=== PATIENT | male | born 1975 | race Caucasian/White ===

== ENCOUNTER 2016-06-29 19:27 | Emergency (ER) | payer OTHER ==
--- NOTE | 2016-06-29 20:40 | ED ---
URI HPI - General Chief Complaint: Upper Respiratory Infection Stated Complaint: Upper Resp Symptoms Time Seen by Provider: 06/29/16 20:07 Source: patient, RN notes reviewed Mode of arrival: ambulatory Limitations: no limitations - History of Present Illness Initial Comments: 40-year-old male presents emergency Department with chief complaint of cough and congestion times one to 2 days. Patient denies any nausea vomiting. Patient states that he has a cough, runny nose no fevers no chills. Denies sore throat any ear pain. He states he does have some body aches. Patient offers no complaints. - Related Data Home Medications Medication Instructions Recorded Confirmed Citalopram Hydrobromide [CeleXA] 10 mg PO DAILY 06/29/16 06/29/16 Gabapentin 800 mg PO TID 06/29/16 06/29/16 Allergies Allergy/AdvReac Type Severity Reaction Status Date / Time No Known Allergies Allergy Verified 06/29/16 20:01 Review of Systems ROS Statement: Those systems with pertinent positive or pertinent negative responses have been documented in the HPI. ROS Other: All systems not noted in ROS Statement are negative. 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 Absent: scleral icterus, conjunctival injection, periorbital swelling ENT exam: Present: normal exam, normal oropharynx, mucous membranes moist, TM's normal bilaterally, normal external ear exam Neck exam: Present: normal inspection, full ROM. Absent: tenderness, meningismus, lymphadenopathy Respiratory exam: Present: normal lung sounds bilaterally. Absent: respiratory distress, wheezes, rales, rhonchi, stridor Cardiovascular Exam: Present: regular rate, normal rhythm, normal heart sounds. Absent: systolic murmur, diastolic murmur, rubs, gallop, clicks Course Vital Signs 06/29/16 20:00 Temperature 99.1 F Pulse Rate 92 Respiratory 18 Rate Blood Pressure 121/68 O2 Sat by Pulse 95 Oximetry Medical Decision Making - Medical Decision Making 40-year-old male presented for emergency department for cough and congestion. Patient's chest x-ray shows no acute abnormality. Patient has a viral URI. Disposition Clinical Impression: Upper respiratory infection Disposition: HOME SELF-CARE Condition: Stable Instructions: Upper Respiratory Infection (ED) Additional Instructions: Please return to the Emergency Department if symptoms worsen or any other concerns. Time of Disposition: 21:30
--- NOTE | 2016-06-29 21:16 | XR ---
EXAMINATION TYPE: XR chest 2V DATE OF EXAM: 06/29/2016 8:27 PM COMPARISON: 02/07/2016 HISTORY: Cough and congestion TECHNIQUE: Frontal and lateral views of the chest are obtained. FINDINGS: There is no focal air space opacity, pleural effusion, or pneumothorax seen. The cardiac silhouette size is within normal limits. The osseous structures are intact. IMPRESSION: No acute cardiopulmonary process.
[2016-06-29 21:38] VITALS: BP 122/69; PULSE 74; RESP 16; TEMP 97.9
== END 2016-06-29 21:43 | disposition home or self-care (01) ==
LOC: EC 19:27
DX: J06.9 Acute upper respiratory infection, unspecified (principal); F17.200 Nicotine dependence, unspecified, uncomplicated
CPT/HCPCS: 71020; 99283

== ENCOUNTER 2017-07-02 03:10 | Emergency (ER) | payer OTHER ==
--- NOTE | 2017-07-02 04:28 | XR ---
EXAM: XR Chest, 2 Views CLINICAL HISTORY: URI TECHNIQUE: Frontal and lateral views of the chest. COMPARISON: 06/29/2016. FINDINGS: Lungs: Mild peribronchial cuffing is suggested, similar to prior study, which may represent mild inflammatory airways disease versus mild pulmonary edema. Pleural space: Unremarkable. No pneumothorax. No pleural effusions. Heart: Unremarkable. No cardiomegaly. Mediastinum: Unremarkable. Bones/joints: Unremarkable. IMPRESSION: Mild peribronchial cuffing is suggested, similar to prior study, which may represent mild inflammatory airways disease versus mild pulmonary edema.
[2017-07-02 04:35] VITALS: RESP 14
--- NOTE | 2017-07-02 05:52 | ED ---
URI HPI - General Chief Complaint: Upper Respiratory Infection Stated Complaint: congestion Time Seen by Provider: 07/02/17 03:34 Source: patient Mode of arrival: ambulatory Limitations: no limitations - History of Present Illness MD Complaint: cough, rhinorrhea, nasal congestion, sinus pain -: days(s) Severity: moderate Quality: aching Consistency: constant Improves With: nothing Worsens With: nothing Context: sick contacts Associated Symptoms: nasal congestion, cough - Related Data Home Medications Medication Instructions Recorded Confirmed Gabapentin 800 mg PO TID 06/29/16 07/17/17 Allergies Allergy/AdvReac Type Severity Reaction Status Date / Time No Known Allergies Allergy Verified 07/17/17 14:13 Review of Systems ROS Statement: Those systems with pertinent positive or pertinent negative responses have been documented in the HPI. ROS Other: All systems not noted in ROS Statement are negative. Constitutional: Denies: fever, chills Eyes: Denies: vision change ENT: Reports: congestion. Denies: ear pain Respiratory: Reports: cough. Denies: dyspnea, wheezes Cardiovascular: Denies: chest pain, palpitations, orthopnea Gastrointestinal: Denies: abdominal pain, vomiting, diarrhea Genitourinary: Denies: dysuria Musculoskeletal: Denies: back pain Skin: Denies: rash Neurological: Denies: headache Past Medical History Past Medical History: No Reported History Additional Past Medical History / Comment(s): Alcohol related seizures, History of Any Multi-Drug Resistant Organisms: None Reported Additional Past Surgical History / Comment(s): facial surgery, Past Psychological History: No Psychological Hx Reported Smoking Status: Current every day smoker Past Alcohol Use History: Abuse, Daily, Heavy Past Drug Use History: Marijuana General Exam Limitations: no limitations General appearance: alert, in no apparent distress Head exam: Present: atraumatic, normocephalic Eye exam: Present: normal appearance. Absent: scleral icterus, conjunctival injection ENT exam: Present: mucous membranes moist, TM's normal bilaterally. Absent: normal oropharynx (There is some cobblestoning of the pharynx as well as some injection.) Neck exam: Present: full ROM, lymphadenopathy. Absent: meningismus Respiratory exam: Present: wheezes. Absent: normal lung sounds bilaterally, respiratory distress, rales, rhonchi Cardiovascular Exam: Present: regular rate, normal rhythm, normal heart sounds. Absent: systolic murmur, diastolic murmur, rubs, gallop GI/Abdominal exam: Present: soft. Absent: tenderness Skin exam: Present: warm, dry, intact, normal color. Absent: rash Course Vital Signs 07/02/17 07/02/17 07/02/17 03:14 04:32 04:35 Temperature 96.9 F L Pulse Rate 84 76 75 Respiratory 18 18 14 Rate Blood Pressure 132/77 125/75 125/75 O2 Sat by Pulse 98 96 95 Oximetry 07/02/17 05:52 Temperature 98.1 F Pulse Rate 69 Respiratory 14 Rate Blood Pressure 107/61 O2 Sat by Pulse 94 L Oximetry Medical Decision Making - Medical Decision Making Patient is a 42-year-old man with some upper respiratory symptoms and cough as well as a feeling of burning in his chest when he coughs. Exam suggests bronchitis, and the x-ray also. We discussed the appropriate further care and follow-up as well as return parameters. He is feeling better following nebulized treatment. - Lab Data Lab Results 07/02/17 Range/Units 04:35 Influenza Type A RNA Not Detected (Not Detectd) Influenza Type B (PCR) Not Detected (Not Detectd) Disposition Clinical Impression: Bronchitis Disposition: HOME SELF-CARE Condition: Good Instructions: Acute Bronchitis (ED) Referrals: None,Stated [Primary Care Provider] - 1-2 days
[2017-07-02 05:54] VITALS: BP 107/61; PULSE 69; TEMP 98.1
--- NOTE | 2017-07-04 03:49 | CDI ---
Documentation Clarification OP Dear Lucian EVANS MD Please do addendum to ED report for HPI , Physical exam and MDM. Thank you, Nora [employer] Director If you have any question, Please contact blogs manager at [phone] [facility]
== END 2017-07-02 05:59 | disposition home or self-care (01) ==
LOC: EC 03:10
DX: J40 Bronchitis, not specified as acute or chronic (principal); F17.200 Nicotine dependence, unspecified, uncomplicated; Z79.899 Other long term (current) drug therapy
CPT/HCPCS: 71046; 87502; 93005; 99284

== ENCOUNTER 2017-07-17 13:18 | Emergency (ER) | payer OTHER ==
--- NOTE | 2017-07-17 13:45 | ED ---
Psych HPI - General Chief Complaint: Psychiatric Symptoms Stated Complaint: suicidal Time Seen by Provider: 07/17/17 13:22 Source: patient Mode of arrival: ambulatory - History of Present Illness Initial Comments: Patient is a 42-year-old male presenting for suicidal ideation. He states that he has an extensive history of alcohol abuse for approximately 20 years and his last drink was this morning. He comes in today for evaluation because he wants psychiatric help because he wants to "smash his truck into a tree". He also states that he has gone into alcohol withdrawals before and has had seizures in the past. He denies any physical complaints other than some bilateral finger pain secondary to excessive use. - Related Data Home Medications Medication Instructions Recorded Confirmed RX: Gabapentin 800 mg PO TID 06/29/16 07/17/17 Allergies Allergy/AdvReac Type Severity Reaction Status Date / Time No Known Allergies Allergy Verified 07/17/17 14:13 Review of Systems ROS Statement: Those systems with pertinent positive or pertinent negative responses have been documented in the HPI. Constitutional: Negative for chills, fatigue and fever. HENT: Negative for congestion. Respiratory: Negative for chest tightness, shortness of breath and wheezing. Cardiovascular: Negative for chest pain and palpitations. Gastrointestinal: Negative for abdominal pain. Negative for abdominal distention , diarrhea, nausea and vomiting. Genitourinary: Negative for dysuria. Musculoskeletal: Negative for back pain, neck pain and neck stiffness. Positive for bilateral hand pain Skin: Negative for color change. Neurological: Negative for dizziness, speech difficulty, weakness and light- headedness. Psychiatric/Behavioral: Negative for agitation and confusion. The patient is not nervous/anxious. Positive for suicidal ideation ROS Other: All systems not noted in ROS Statement are negative. Past Medical History Past Medical History: No Reported History Additional Past Medical History / Comment(s): Alcohol related seizures, History of Any Multi-Drug Resistant Organisms: None Reported Additional Past Surgical History / Comment(s): facial surgery, Past Psychological History: No Psychological Hx Reported Smoking Status: Current every day smoker Past Alcohol Use History: Abuse, Daily, Heavy Past Drug Use History: Marijuana General Exam - General Exam Comments Initial Comments: Physical Exam Constitutional: Pt is oriented to person, place, and time. Pt appears well- developed and well-nourished. No distress. HENT: Head: Normocephalic and atraumatic. Eyes: EOM are normal. Neck: Normal range of motion. Neck supple. Cardiovascular: Normal rate, regular rhythm, S1 normal, S2 normal and normal heart sounds. Exam reveals no gallop and no friction rub. No murmur heard. Pulmonary/Chest: Effort normal and breath sounds normal. No tachypnea and no bradypnea. No respiratory distress. No wheezes or rales noted. Abdominal: Soft. Bowel sounds are normal. Pt exhibits no shifting dullness, no distension, no pulsatile liver, no fluid wave, no abdominal bruit and no ascites. There is no tenderness. There is no rigidity, no rebound, no guarding, no tenderness at McBurney's point and negative Liu's sign. Musculoskeletal: Normal range of motion. Neurological: Pt is alert and oriented to person, place, and time. No cranial nerve deficit. Skin: Skin is warm and dry. No rash noted. He is not diaphoretic. No erythema. No pallor. Psychiatric: He has a normal mood and affect. His behavior is normal. Patient does express suicidal ideation and appears clinically intoxicated. Limitations: no limitations Course Vital Signs 07/17/17 13:27 Temperature 97.4 F L Pulse Rate 108 H Respiratory 18 Rate Blood Pressure 160/90 O2 Sat by Pulse 100 Oximetry - Reevaluation(s) Reevaluation #1: 07/17/17 13:44 Breath alcohol level measured at 0.28. Patient will be reevaluated once level is less than 0.08 for evaluation of psychiatric illness. 07/17/17 19:19 Patient continuing to rest in bed in no acute distress. Reevaluation #2: 07/17/17 22:09 Breath alcohol measured at 0.12. Patient will be legally sober at approximately 1 AM on July 18. Medical Decision Making - Medical Decision Making Patient has been evaluated here in the emergency department and has been resting currently in no acute distress. His alcohol level continues to be trending downwards and he is expected to be sober at approximately 1 AM on the morning of July 18. Case is being signed out to Dr. Oliva who will follow up on pt dispo. - Lab Data Lab Results 07/17/17 Range/Units 13:40 Urine Opiates Screen Not Detected (NotDetected) Ur Oxycodone Screen Not Detected (NotDetected) Urine Methadone Screen Not Detected (NotDetected) Ur Propoxyphene Screen Not Detected (NotDetected) Ur Barbiturates Screen Not Detected (NotDetected) U Tricyclic Antidepress Not Detected (NotDetected) Ur Phencyclidine Scrn Not Detected (NotDetected) Ur Amphetamines Screen Not Detected (NotDetected) U Methamphetamines Scrn Not Detected (NotDetected) U Benzodiazepines Scrn Not Detected (NotDetected) Urine Cocaine Screen Not Detected (NotDetected) U Marijuana (THC) Screen Not Detected (NotDetected) Disposition Clinical Impression: Suicidal ideation, Alcohol abuse Disposition: OTHER INSTITUTION NOT DEFINED Condition: Good Referrals: None,Stated [Primary Care Provider] - 1-2 days - Out of Hospital Transfer - Req. Specs Out of Hospital Transfer - Requested Specifics: Other Non-Acute (Pending)
[2017-07-17 14:27] LABS: Amphetamine Screen,Urine Not Detected (NotDetected); Barbiturate Screen,Urine Not Detected (NotDetected); Benzodiazepines Screen,Urine Not Detected (NotDetected); Cocaine Screen,Urine Not Detected (NotDetected); Methadone Screen, Urine Not Detected (NotDetected); Opiate Screen,Urine Not Detected (NotDetected); Oxycodone Screen, Urine Not Detected (NotDetected); Phencyclidine Screen,Urine Not Detected (NotDetected); Tricyclic Antidepressant,Urine Not Detected (NotDetected); Urn Cannabinoid Scrn Not Detected (NotDetected)
[2017-07-18 04:27] VITALS: BP 150/94; PULSE 116; RESP 16; TEMP 97.8
== END 2017-07-18 04:27 | disposition other institution (70) ==
LOC: EC 13:18
DX: F10.10 Alcohol abuse, uncomplicated (principal); R45.851 Suicidal ideations; M79.644 Pain in right finger(s); M79.645 Pain in left finger(s); F17.200 Nicotine dependence, unspecified, uncomplicated; Z79.899 Other long term (current) drug therapy
CPT/HCPCS: 80306; 82075; 99285

== ENCOUNTER 2017-09-06 18:07 | Emergency (ER) | payer OTHER ==
--- NOTE | 2017-09-06 19:49 | ED ---
Alcohol HPI - General Chief Complaint: Alcohol Stated Complaint: mental health, needs detox Time Seen by Provider: 09/06/17 19:27 Source: patient Mode of arrival: ambulatory Limitations: no limitations - History of Present Illness Initial Comments: 42-year-old male patient presents to the emergency department today requesting assistance with detox from alcohol. Patient states he has been a chronic abuser of alcohol for the last 20 years. He states that he has been depressed recently but really wants to stop drinking. He denies any suicidal or homicidal ideation. States he drinks approximately 1/5 to a half gallon of liquor per day. He states that he is able to go to [place] however he is not able to go until September 19. Patient was hoping to be admitted for detox. Last drink was 2 hours ago. Denies any current physical symptoms. Patient denies any recent rash, fever, chills, shortness breath, chest pain, abdominal pain, nausea, vomiting, diarrhea, constipation, back pain, numbness, tingling, dizziness, weakness, hematuria, dysuria, urinary urgency, urinary frequency, headache, visual changes, or any other complaints. - Related Data Previous Rx's Medication Instructions Recorded chlordiazePOXIDE HCl [Librium] 50 mg PO QID #56 capsule 09/06/17 Allergies Allergy/AdvReac Type Severity Reaction Status Date / Time No Known Allergies Allergy Verified 09/06/17 19:52 Review of Systems ROS Statement: Those systems with pertinent positive or pertinent negative responses have been documented in the HPI. ROS Other: All systems not noted in ROS Statement are negative. Past Medical History Past Medical History: No Reported History Additional Past Medical History / Comment(s): Alcohol related seizures, History of Any Multi-Drug Resistant Organisms: None Reported Additional Past Surgical History / Comment(s): facial surgery, Past Psychological History: No Psychological Hx Reported Smoking Status: Current every day smoker Past Alcohol Use History: Abuse, Daily, Heavy Past Drug Use History: Marijuana General Exam Limitations: no limitations General appearance: alert, in no apparent distress, appears intoxicated, other ( This is a well-developed, well-nourished adult male patient in no acute distress. Vital signs upon presentation are temperature 98.3F, pulse 123, respirations 20, blood pressure 132/89, pulse ox 95% on room air.) Eye exam: Present: normal appearance, PERRL, EOMI. Absent: scleral icterus, conjunctival injection, periorbital swelling ENT exam: Present: normal exam, normal oropharynx, mucous membranes moist Respiratory exam: Present: normal lung sounds bilaterally. Absent: respiratory distress, wheezes, rales, rhonchi, stridor Cardiovascular Exam: Present: regular rate, normal rhythm, normal heart sounds. Absent: systolic murmur, diastolic murmur, rubs, gallop, clicks Neurological exam: Present: alert, oriented X3, CN II-XII intact Psychiatric exam: Present: normal affect, normal mood Skin exam: Present: warm, dry, intact, normal color. Absent: rash Course Vital Signs 09/06/17 09/06/17 18:37 19:48 Temperature 98.3 F 97.1 F L Pulse Rate 123 H 94 Respiratory 20 18 Rate Blood Pressure 132/89 138/89 O2 Sat by Pulse 95 96 Oximetry Medical Decision Making - Medical Decision Making 42-year-old male patient presented to the emergency department today requesting assistance with detox from alcohol. Physical examination is unremarkable. Patient does appear mildly intoxicated. His significant other will be driving him home. I did discuss with patient that we do not offer inpatient detox services. I did offer him prescription of Librium to help with his symptoms. He is instructed to continue calling counts include [facility] beds at the [facility] for earlier appointment. He is instructed to return here immediately for any other new, worsening, or concerning symptoms. He verbalizes understanding and agrees with this plan. Disposition Clinical Impression: Alcohol dependence Disposition: HOME SELF-CARE Condition: Good Instructions: Alcohol Intoxication (ED), Alcohol Withdrawal (ED) Additional Instructions: Take Librium as directed to assist with withdrawal symptoms. Follow-up with your primary care physician as soon as possible. Continue contacting [place] to see if you can get a sooner admit date. Return here immediately for any new, worsening, or concerning symptoms. Prescriptions: chlordiazePOXIDE HCl [Librium] 50 mg PO QID #56 capsule Referrals: None,Stated [Primary Care Provider] - 1-2 days Time of Disposition: 19:49
[2017-09-06 19:50] VITALS: BP 138/89; PULSE 94; RESP 18; TEMP 97.1
== END 2017-09-06 19:58 | disposition home or self-care (01) ==
LOC: EC 18:07
DX: F10.229 Alcohol dependence with intoxication, unspecified (principal); F32.9 Major depressive disorder, single episode, unspecified; F17.200 Nicotine dependence, unspecified, uncomplicated
CPT/HCPCS: 99283

== ENCOUNTER 2018-03-13 03:04 | Emergency (ER) | payer OTHER ==
[2018-03-13 03:20] VITALS: BP 128/88; PULSE 91; RESP 18; TEMP 98.1
== END 2018-03-13 03:55 ==
LOC: EC 03:04
DX: Z02.89 Encounter for other administrative examinations (principal)
CPT/HCPCS: 82075

== ENCOUNTER 2019-02-14 19:07 | Emergency (ER) | payer OTHER ==
[2019-02-14 19:19] VITALS: BP 152/89; PULSE 89; RESP 18; TEMP 98.1
[2019-02-14] MEDS ORDERED: AMOXIC-POT CLAV 875-125MG 1 EACH TAB PO STA (19:37)
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
[2019-02-14] MEDS ORDERED: AMOXIC-POT CLAV 875MG STARTER 2 EACH TABLET PO STA (19:59)
== END 2019-02-14 20:03 | disposition home or self-care (01) ==
LOC: EC 19:07
DX: S51.852A Open bite of left forearm, initial encounter (principal); S51.851A Open bite of right forearm, initial encounter; F17.200 Nicotine dependence, unspecified, uncomplicated; W50.3XXA Accidental bite by another person, initial encounter
CPT/HCPCS: 99283

== ENCOUNTER 2020-07-20 13:00 | Emergency (ER) | payer OTHER ==
[2020-07-20 13:10] VITALS: RESP 18
[2020-07-20 14:16] VITALS: BP 138/83; PULSE 87; TEMP 98
[2020-07-20] MEDS ORDERED: KETOROLAC 15 MG/ML 1 ML VIAL IM STA (14:20)
--- NOTE | 2020-07-20 14:23 | ED ---
Extremity Problem HPI - General Chief complaint: Extremity Problem,Nontraumatic Stated complaint: rt shoulder pain Time Seen by Provider: 07/20/20 13:27 Source: patient Mode of arrival: ambulatory Limitations: no limitations - History of Present Illness Initial comments: Patient is a 45-year-old male presenting to the emergency Department with complaints of right shoulder pain and some increasing over the past 2 weeks. Patient states his pain started the right side of his neck, he thought he might have slept wrong. He was describing tightness into his upper trap. Patient states over the past 2 weeks he's noticed the pain traveling into his right shoulder. He has pain with overhead movement. He denies any falls or trauma, no prior surgeries. Patient denies any fever or chills. He has no further complaints at this time. - Related Data Previous Rx's Medication Instructions Recorded Cyclobenzaprine [Flexeril] 5 mg PO DAILY PRN #8 tablet 07/20/20 Allergies Allergy/AdvReac Type Severity Reaction Status Date / Time No Known Allergies Allergy Verified 07/20/20 13:51 Review of Systems ROS Statement: Those systems with pertinent positive or pertinent negative responses have been documented in the HPI. ROS Other: All systems not noted in ROS Statement are negative. Past Medical History Past Medical History: No Reported History Additional Past Medical History / Comment(s): Alcohol related seizures, History of Any Multi-Drug Resistant Organisms: None Reported Additional Past Surgical History / Comment(s): facial surgery Past Psychological History: No Psychological Hx Reported Smoking Status: Current every day smoker Past Alcohol Use History: Abuse, Heavy Past Drug Use History: Marijuana General Exam - General Exam Comments Initial Comments: GENERAL: Patient is well-developed and well-nourished. Patient is nontoxic and in no acute distress. HEAD: Atraumatic, normocephalic. EYES: Pupils equal round and reactive to light, extraocular movements intact, sclera anicteric, conjunctiva are normal. Eyelids were unremarkable. ENT: TMs normal, nares patent, oropharynx clear without exudates. Moist mucous membranes. NECK: Normal range of motion, supple without lymphadenopathy or JVD. LUNGS: Unlabored respirations. Breath sounds clear to auscultation bilaterally and equal. No wheezes rales or rhonchi. HEART: Regular rate and rhythm without murmurs, rubs or gallops. ABDOMEN: Soft, nontender, normoactive bowel sounds. No guarding, no rebound. No masses appreciated. : Deferred MUSCULOSKELETAL: Patient has full range of motion of the right arm. He does have increased pain with resisted internal and external range of motion, positive speed sign. He has no swelling, he is neurovascular intact. He also has pain of the right upper trapezius muscle. No clubbing or cyanosis. NEUROLOGICAL: Patient is alert and oriented x 3. Motor and sensory are also intact. Cranial nerves II through XII grossly intact. Symmetrical smile. Normal speech, normal gait. PSYCH: Normal mood, normal affect. SKIN: Warm, Dry, normal turgor, no rashes or lesions noted. Limitations: no limitations Course Vital Signs 07/20/20 07/20/20 13:07 14:14 Temperature 97.7 F 98 F Pulse Rate 100 87 Respiratory 18 18 Rate Blood Pressure 125/87 138/83 O2 Sat by Pulse 97 96 Oximetry Medical Decision Making - Medical Decision Making ACEs a 45-year-old male here for right shoulder pain 2 weeks. No falls or trauma. Patient has pain in the right upper trapezius as well as exam is cons istent with rotator cuff strain or sprain. Patient was given Toradol the ER, I will give him a short course of muscle relaxer. I also give him orthopedic follow-up if symptoms persist. Patient is stable for discharge. Patient is in agreement with this plan of care. Return parameters were discussed with the patient and they verbalized understanding. Case discussed with Dr. Hill. Disposition Clinical Impression: Right shoulder strain, Trapezius muscle spasm Disposition: HOME SELF-CARE Condition: Stable Instructions (If sedation given, give patient instructions): Shoulder Pain (ED) Additional Instructions: Please return to the Emergency Department if symptoms worsen or any other concerns. May take tylenol or ibuprofen for any discomfort. May take Flexeril at night for muscle spasm. Please follow up with orthopedic doctor if symptoms persist. Prescriptions: Cyclobenzaprine [Flexeril] 5 mg PO DAILY PRN #8 tablet PRN Reason: Muscle Spasm Is patient prescribed a controlled substance at d/c from ED?: No Referrals: None,Stated [Primary Care Provider] - 1-2 days Abel Whelan MD [STAFF PHYSICIAN] - 1-2 days
== END 2020-07-20 14:39 | disposition home or self-care (01) ==
LOC: EC 13:00
DX: S46.911A Strain of unspecified muscle, fascia and tendon at shoulder and upper arm level, right arm, initial encounter (principal); M62.838 Other muscle spasm; F17.200 Nicotine dependence, unspecified, uncomplicated; X58.XXXA Exposure to other specified factors, initial encounter
CPT/HCPCS: 99283; 96372; J1885